=== PATIENT | male | born 1980 | race Caucasian/White ===

== ENCOUNTER 2019-03-01 06:37 | Day surgery (SDC) | payer BC ==
[2019-03-01] VITALS (7 sets, daily range): BP systolic 104–123; BP diastolic 66–84; PULSE 74–89; RESP 11–20; Ht 168.9 cm; Wt 86.0 kg
[~2019-03-01] VITALS: Ht 168.9 cm; Wt 86.0 kg
[~2019-03-01 06:37] MED LIST: CEFAZOLIN 2 GM/50 ML (PMX) 50 ML IVPB SCH; SOD CHLORIDE 0.9% 1,000 ML IV SCH
[2019-03-01] MEDS ORDERED: BUPIVACAINE 0.25%/EPI (SDV) 30 ML INJ ONE (08:41)
[2019-03-01] MEDS ORDERED: BUPIVACAINE 0.25%/EPI (SDV) 10 ML INJ INJ ONE (08:56)
--- NOTE | 2019-03-01 09:02 | PREAC ---
Date/Time of Note Date/Time of Note DATE: 03/01/19 TIME: 09:00 Anesthesia Eval and Record Evaluation Time Pre-Procedure Interview DATE: 03/01/19 TIME: 09:00 Age 38 Sex male NPO: 8 hrs Preoperative diagnosis Posterior Neck Mass Planned procedure Excision of Mass Past Medical History Past Medical History: None Surgery & Anesthesia Issues No known issue Meds Anticoagulation: No Beta Yovani within 24 hr: No Reason Beta Yovani not given: Pt. not on B-Yovani No Active Prescriptions or Reported Meds Current Medications Sodium Chloride 1,000 ml @ 75 mls/hr [id number] IV Last administered on 03/01/19at 08:50; Admin Dose 75 MLS/HR; Start 03/01/19 at 06:00; Stop 03/01/19 at 19:19 Cefazolin Sodium/ Dextrose 50 ml @ 100 mls/hr PREOP IVPB ; Start 03/01/19 at 06:00; Stop 03/01/19 at 19:00 Meds reviewed: Yes Allergies Coded Allergies: No Known Allergy (Unverified , 03/01/19) Allergies Reviewed: Yes Labs/Studies Labs Reviewed: Reviewed by anesthesiologist test: N/A Pre-procedure Exam Last vitals Vital Signs Date Temp Pulse Resp B/P (MAP) Pulse Ox O2 O2 Flow FiO2 Time Delivery Rate 03/01/19 97.4 89 16 123/84 95 07:45 (97) Airway: Adequate mouth opening Mallampati: Mallampati II Teeth: Normal Lung: Normal Heart: Normal ASA Physical Status ASA physical status: 2 Emergency: None Planned Anesthetic General/MAC: MAC Pre-operative Attestations Prior to commencing anesthesia and surgery, the patient was re-evaluated, there was verification of: *The patient's identity *The results of appropriate recent lab work and preoperative vital signs *The above evaluation not changing prior to induction *Anesthetic plan, risk benefits, alternative and complications discussed with patient/family; questions answered; patient/family understands, accepts and wishes to proceed. MALLORY MOE MD Mar 01, 2019 09:02
[2019-03-01] MEDS ORDERED: CEFAZOLIN 1 GM INJ ONE (09:04)
[2019-03-01] MEDS ORDERED: PROPOFOL 20 ML ONE (09:04)
[2019-03-01] MEDS ORDERED: MIDAZOLAM 1 MG/ML 2 ML INJ ONE (09:05)
[2019-03-01] MEDS ORDERED: KETOROLAC 30 MG INJ ONE (09:05)
[2019-03-01] MEDS ORDERED: ONDANSETRON 4 MG INJ ONE (09:05)
[2019-03-01] MEDS ORDERED: FENTAnyl 50 MCG/ML VIAL ONE (09:05)
[2019-03-01] MEDS ORDERED: BUPIVACAINE 0.25% (MPF) 30 ML INJ INJ ONE (09:15)
[2019-03-01] MEDS ORDERED: LIDOCAINE 1%/EPI 30 ML INJ INJ ONE (09:15)
[2019-03-01] MEDS ORDERED: HYDROmorphONE 1 MG/5 ML IV SYRINGE IV PRN (09:30)
[2019-03-01] MEDS ORDERED: BUPIVACAINE 0.25% (MPF) 30 ML INJ ONE (09:30)
[2019-03-01] MEDS ORDERED: LIDOCAINE 1%/EPI 30 ML INJ ONE (09:30)
[2019-03-01] MEDS ORDERED: ONDANSETRON 4 MG INJ IV PRN ×2 (09:30→10:30)
[2019-03-01] MEDS ORDERED: OXYCODONE/ACETAMINOPHEN (5/325) TAB PO PRN (09:30)
[2019-03-01] MEDS ORDERED: FENTAnyl 50 MCG/ML VIAL IV PRN (09:30)
--- NOTE | 2019-03-01 10:27 | OPR ---
Date/Time of Note Date/Time of Note DATE: 03/01/19 TIME: 10:21 Operative Report Procedure Date: Mar 01, 2019 Preoperative Diagnosis Posterior neck mass Postoperative Diagnosis Posterior neck mass Operation/Procedure Performed Excision posterior neck mass, subfascial, 4 cm Surgeon see signature line [employer] None Anesthesia Type: general Anesthesiologist: MALLORY MOE MD Estimated Blood Loss: minimal Transfusion none Specimen Posterior neck mass Grafts/Implants none Complications none Pt Condition Post Procedure: stable Disposition: PACU Indications Patient is a 38-year-old male who presented to the office complaining of a mass of the posterior neck. This had been present for the last 3 to 4 years. He reported growth. The patient was scheduled for elective excision for symptom relief and definitive pathological diagnosis. All risks and benefits of the procedure including, but not limited to: Wound infection, excessive bleeding, postoperative seroma/hematoma formation, mass recurrence, etc. were all explained to the patient in full detail. The patient fully understood and wished to proceed with the procedure. Informed consent was obtained. Procedure Description Patient was brought to the operating room and placed on the operating table in the right lateral decubitus position with the left side up. Bilateral sequential compression devices were placed on both lower extremities. A dose of broad-spectrum perioperative intravenous antibiotics was given. The mass which was located in the posterior neck was preoperatively marked and confirmed with the patient in the holding area. After achieving adequate sedation the patient's posterior neck was prepped and draped in standard surgical fashion. After performance of the surgical timeout, 1% lidocaine with epinephrine was injected over the area of the mass creating a field block. An incision was then made over the mass using a 15 blade scalpel. The incision was carried down through the skin and subcutaneous tissues to the level of the fascia using Bovie electrocautery. The fascia was then incised. A subfascial, friable, lipomatous neoplasm was identified under the fascia and closely adhered to the muscle. There was partial fibrosis of the mass. It was dissected free of surrounding tissues and delivered through the incision. It was transected at its base and passed off the field as specimen. Measured approximately 4 cm in maximal dimension. Hemostasis was then inspected for noted to be adequate. The wound cavity was irrigated with warm saline and the irrigant returned clear. At this point 0.25% Marcaine was injected around the incision. Incision was then reapproximated in layers using interrupted 3-0 Vicryl sutures for the fascial layer. The skin was reapproximated using 4-0 Monocryl sutures in a running subcuticular fashion. Incision was then cleaned and Dermabond was applied. The patient was transported to the recovery room in stable condition. All counts were correct at the end of the case x2 KIMBERLY MIRELES MD Mar 01, 2019 10:27
[2019-03-01] MEDS ORDERED: KETOROLAC 30 MG INJ IV PRN (10:30)
[2019-03-01] MEDS ORDERED: IBUPROFEN 600 MG TAB PO PRN (10:30)
--- NOTE | 2019-03-01 10:53 | PAC ---
Date/Time of Note Date/Time of Note DATE: 03/01/19 TIME: 10:53 Post-Anesthesia Notes Post-Anesthesia Note Last documented vital signs Vital Signs Date Temp Pulse Resp B/P (MAP) Pulse Ox O2 O2 Flow FiO2 Time Delivery Rate 03/01/19 97.4 89 16 123/84 95 07:45 (97) Activity: WNL Respiratory function: WNL Cardiovascular function: WNL Mental status: Baseline Pain reasonably controlled: Yes Hydration appropriate: Yes Nausea/Vomiting absent: Yes MALLORY MOE MD Mar 01, 2019 10:53
== END 2019-03-01 11:58 | disposition home or self-care (01) ==
LOC: SDS 06:37 → EDSEX 11:00 → SDS 11:58
PROVIDERS: ATTEND Surgery
DX: D17.0 Benign lipomatous neoplasm of skin and subcutaneous tissue of head, face and neck (principal)
CPT/HCPCS: 21556; 85610; 85730; 88307; J0690; J1885; J2250; J2405; J3010; Z7512; Z7610